=== PATIENT | male | born 1955 | race African-American/Black ===

== ENCOUNTER 2024-08-01 04:27 | Emergency (ER) | payer MEDICARE, MEDICAID ==
[~2024-08-01] VITALS: Ht 182.9 cm; Wt 90.7 kg
[2024-08-01 04:33] VITALS: O2SAT 98
[2024-08-01 05:39] LABS: BASOPHILS % 1.1 % (0.0-2.0); DIFFERENTIAL COMMENT 0; EOSINOPHILS % 8.1 % (0.0-5.0); HEMATOCRIT. 39.5 % (42.0-52.0); HEMOGLOBIN. 12.3 g/dL (14.0-18.0); MEAN CORPUSCULAR HGB CONC 31.1 g/dL (31.0-37.0); MEAN CORPUSCULAR VOLUME 74.1 fL (80.0-94.0); MEAN PLATELET VOLUME 8.6 fl (7.4-10.4); MONOCYTES % 8.2 % (2.0-8.0); NEUTROPHILS % 38.6 % (40.0-76.0); PLATELET 186 x1000/uL (130-400); RED BLOOD CELL COUNT 5.32 mill/uL (4.7-6.1); RED CELL DISTRIBUTION WIDTH 15.1 % (11.6-14.6); WHITE BLOOD COUNT 6.6 x1000/uL (4.5-11.0)
[2024-08-01 05:50] LABS: PROTHROMBIN TIME 10.7 sec (9.6-11.0)
[2024-08-01 06:02] LABS: CHLORIDE 107 mEq/L (98-107); POTASSIUM 3.6 mEq/L (3.5-5.1); SODIUM 143 mEq/L (136-145)
[2024-08-01 06:03] LABS: CARBON DIOXIDE 27 mEq/L (21-32)
[2024-08-01 06:04] LABS: CALCIUM 9.1 mg/dL (8.7-10.4)
[2024-08-01 06:08] LABS: GLUCOSE 166 mg/dL (70-105)
[2024-08-01 06:09] LABS: TROPONIN I HIGH SENSITIVITY 21 ng/L (3.0-53); UREA NITROGEN BLOOD 12 mg/dL (9-23)
[2024-08-01] MEDS: CLOPIDOGREL 75MG TABLET PO ONE (06:59)
[2024-08-01] MEDS: ASPIRIN 81MG TABLET PO ONE (06:59)
[2024-08-01] MEDS: IOHEXOL-350 100 ML BOTTLE ONE (07:05)
[2024-08-01 07:50] VITALS: BP 141/80; PULSE 57; RESP 18; TEMP 36.8; O2SAT 100
[2024-08-04] MEDS ORDERED: ATOR40TA70 (09:00)
[2024-08-04] MEDS ORDERED: LISI10TA26 (09:00)
[2024-08-04] MEDS ORDERED: METO25TA6 (09:00)
[2024-08-04] MEDS ORDERED: FOLI-43 (09:00)
[2024-08-04] MEDS ORDERED: METF-414 PO (12:29)
[2024-08-04] MEDS ORDERED: HYDR50TA PO (12:29)
== END 2024-08-01 07:58 | disposition short-term general hospital (02) ==
LOC: ER 05:11 → CANBEDREQ 08:11
DX: I69.354 Hemiplegia and hemiparesis following cerebral infarction affecting left non-dominant side (principal); I67.82 Cerebral ischemia; I65.1 Occlusion and stenosis of basilar artery; I11.9 Hypertensive heart disease without heart failure; E11.9 Type 2 diabetes mellitus without complications; Z79.899 Other long term (current) drug therapy
CPT/HCPCS: 99291; 70496; 71045; 80048; 83880; 85025; 85610; 84484; 36415; 70498; 93005; 70450; Q9967

== ENCOUNTER 2024-08-05 22:47 | Emergency (ER) | payer MEDICARE, MEDICAID ==
[~2024-08-05] VITALS: Ht 175.3 cm; Wt 87.0 kg
[~2024-08-05 22:47] MED LIST: ATOR40TA70; FOLI-43; HYDR50TA PO; LISI10TA26; METF-414 PO; METO25TA6
[2024-08-05 23:02] VITALS: BP 138/69; PULSE 70; RESP 16; TEMP 36.9; O2SAT 100
[2024-08-06] LABS: BASOPHILS % 1.3 % (0.0-2.0); DIFFERENTIAL COMMENT 0; EOSINOPHILS % 7.1 % (0.0-5.0); HEMATOCRIT. 40.9 % (42.0-52.0); HEMOGLOBIN. 12.6 g/dL (14.0-18.0); LYMPHOCYTES % 43.9 % (20.0-50.0); MEAN CORPUSCULAR HEMOGLOBIN 22.8 pg (28.0-32.0); MEAN CORPUSCULAR HGB CONC 30.8 g/dL (31.0-37.0); MEAN PLATELET VOLUME 8.4 fl (7.4-10.4); MONOCYTES % 7.6 % (2.0-8.0); NEUTROPHILS % 40.1 % (40.0-76.0); PLATELET 185 x1000/uL (130-400); RED BLOOD CELL COUNT 5.52 mill/uL (4.7-6.1); RED CELL DISTRIBUTION WIDTH 15.1 % (11.6-14.6); WHITE BLOOD COUNT 5.5 x1000/uL (4.5-11.0)
[2024-08-06 00:04] LABS: CHLORIDE 102 mEq/L (98-107); POTASSIUM 3.5 mEq/L (3.5-5.1); SODIUM 136 mEq/L (136-145)
[2024-08-06 00:05] LABS: CALCIUM 9.2 mg/dL (8.7-10.4); CARBON DIOXIDE 25 mEq/L (21-32)
[2024-08-06 00:10] LABS: CREATININE 1.2 mg/dL (0.6-1.3); GLUCOSE 262 mg/dL (70-105); UREA NITROGEN BLOOD 14 mg/dL (9-23)
[2024-08-06 00:12] LABS: TROPONIN I HIGH SENSITIVITY 11 ng/L (3.0-53)
== END 2024-08-06 02:22 | disposition home or self-care (01) ==
LOC: ER 22:47
DX: R20.2 Paresthesia of skin (principal); E11.9 Type 2 diabetes mellitus without complications; I10 Essential (primary) hypertension; Z98.890 Other specified postprocedural states; Z79.899 Other long term (current) drug therapy; Z86.73 Personal history of transient ischemic attack (TIA), and cerebral infarction without residual deficits
CPT/HCPCS: 36415; 71045; 80048; 84484; 85025; 93005; 99285